=== PATIENT | female | born 1955 | race Asian ===

== ENCOUNTER 2016-10-07 08:59 | Emergency (ER) | payer OTHER ==
[2016-10-07 09:09] VITALS: TEMP 98.7; BMI 21.9
--- NOTE | 2016-10-07 09:17 | PDOC ---
[id number] No Limitations - History of Present Illness Initial Comments: 10/07/16 09:23 The patient is a 60 year old female with significant past medical history of hypertension who presents to the emergency department s/p slip and fall on ice this morning. The patient was walking outside when she slipped on ice and landed on her back. She was unable to get up on her own. Her pain is localized to her mid and upper back. The pain does not radiate. The patient denies any head trauma or LOC from the injury. She denies recent illness, fevers, or chills. <Sienna Hoffman - Last Filed: 10/07/16 09:23> <Johnson Ly - Last Filed: 11/29/16 19:53> - General Chief Complaint: Injury Stated Complaint: FALL Time Seen by Provider: 10/07/16 09:16 Past History <Sienna Hoffman - Last Filed: 10/07/16 09:23> - Past Medical History HTN: Yes - Psycho/Social/Smoking Cessation Hx Anxiety: No Suicidal Ideation: No Smoking History: Former smoker Have you smoked in the past 12 months: No Information on smoking cessation initiated: No Hx Alcohol Use: No Drug/Substance Use Hx: No Substance Use Type: None <Johnson Ly - Last Filed: 11/29/16 19:53> - Past Medical History Allergies/Adverse Reactions: Allergies Allergy/AdvReac Type Severity Reaction Status Date / Time No Known Allergies Allergy Verified 10/07/16 09:05 Home Medications: Ambulatory Orders Cimetidine [Tagamet Hb] 200 mg PO TID #30 tablet 10/07/16 Ibuprofen [Motrin -] 600 mg PO TID #30 tablet 10/07/16 Losartan Potassium 50 mg PO DAILY 10/07/16 Ondansetron [Ondansetron Odt] 8 mg PO TID #30 tab.rapdis 10/07/16 Oxycodone HCl/Acetaminophen [Percocet 5-325 mg Tablet] 1 - 2 tab PO Q6H #30 tab MDD 6 10/07/16 Review of Systems - Review of Systems Able to Perform ROS?: Yes Comments:: 10/07/16 09:23 GENERAL/CONSTITUTIONAL: No fever or chills. No weakness. HEAD, EYES, EARS, NOSE AND THROAT: No change in vision. No ear pain or discharge. No sore throat. CARDIOVASCULAR: No chest pain or shortness of breath. RESPIRATORY: No cough, wheezing, or hemoptysis. GASTROINTESTINAL: No nausea, vomiting, diarrhea or constipation. GENITOURINARY: No dysuria, frequency, or change in urination. MUSCULOSKELETAL: +Back pain. No joint or muscle swelling or pain. No neck pain. SKIN: No rash NEUROLOGIC: No headache, vertigo, loss of consciousness, or change in strength/ sensation. ENDOCRINE: No increased thirst. No abnormal weight change. HEMATOLOGIC/LYMPHATIC: No anemia, easy bleeding, or history of blood clots. ALLERGIC/IMMUNOLOGIC: No hives or skin allergy. <Sienna Hoffman - Last Filed: 10/07/16 09:23> *Physical Exam - Vital Signs Last Vital Signs Temp Pulse Resp BP Pulse Ox 98.7 F 72 20 123/87 99 10/07/16 09:06 10/07/16 09:06 10/07/16 09:06 10/07/16 09:06 10/07/16 09:06 - Physical Exam Comments: 10/07/16 09:23 GENERAL: Awake, alert, and fully oriented, in no acute distress HEAD: No signs of trauma EYES: PERRLA, EOMI, sclera anicteric, conjunctiva clear ENT: Auricles normal inspection, hearing grossly normal, nares patent, oropharynx clear without exudates. Moist mucosa NECK: Normal ROM, supple, no lymphadenopathy, JVD, or masses LUNGS: Breath sounds equal, clear to auscultation bilaterally. No wheezes, and no crackles HEART: Regular rate and rhythm, normal S1 and S2, no murmurs, rubs or gallops ABDOMEN: Soft, nontender, normoactive bowel sounds. No guarding, no rebound. No masses MUSCULOSKELETAL: +Tenderness in the mid thoracic and upper thoracic area. EXTREMITIES: Normal range of motion, no edema. No clubbing or cyanosis. No cords, erythema, or tenderness NEUROLOGICAL: Cranial nerves II through XII grossly intact. Normal speech, normal gait SKIN: Warm, Dry, normal turgor, no rashes or lesions noted. <Sienna Hoffman - Last Filed: 10/07/16 09:23> - Vital Signs Last Vital Signs Temp Pulse Resp BP Pulse Ox 98.7 F 72 20 123/87 99 10/07/16 09:06 10/07/16 09:06 10/07/16 09:06 10/07/16 09:06 10/07/16 09:06 <Johnson Ly - Last Filed: 11/29/16 19:53> *DC/Admit/Observation/Transfer - Attestations Scribe Attestion: 10/07/16 09:24 Documentation prepared by Sienna Hoffman, acting as medical transcriber for Johnson Ly DO. <Sienna Hoffman - Last Filed: 10/07/16 09:23> - Discharge Dispostion Admit: No - Attestations Physician Attestion: 10/07/16 09:17 I, Dr. Johnson Ly, attest that this document has been prepared under my direction and personally reviewed by me in its entirety. I further attest, that it accurately reflects all work, treatment, procedures and medical decision -making performed by me. <Johnson Ly - Last Filed: 11/29/16 19:53> Diagnosis at time of Disposition: Acute cervical sprain Qualifiers: Encounter type: initial encounter Qualified Code(s): S13.9XXA - Sprain of joints and ligaments of unspecified parts of neck, initial encounter Strain of thoracic spine Qualifiers: Encounter type: initial encounter Qualified Code(s): S29.019A - Strain of muscle and tendon of unspecified wall of thorax, initial encounter - Discharge Dispostion Disposition: HOME Condition at time of disposition: Good - Prescriptions Prescriptions: Ibuprofen [Motrin -] 600 mg PO TID #30 tablet Oxycodone HCl/Acetaminophen [Percocet 5-325 mg Tablet] 1 - 2 tab PO Q6H #30 tab MDD 6 Cimetidine [Tagamet Hb] 200 mg PO TID #30 tablet Ondansetron [Ondansetron Odt] 8 mg PO TID #30 tab.rapdis - Referrals Referrals: Ángela Han MD [Primary Care Provider] - - Patient Instructions Printed Discharge Instructions: DI for Closed Head Injury, DI for Cervical Muscle Strain, DI for Thoracic Back Pain Additional Instructions: Mrs Keith- Rest as much as possible. Use the medicines only if you absolutely need them. Follow up with your doctor early next week. Return to us if worse or new symptoms occur. Best- Dr. Johnson Gabrin - Post Discharge Activity Work/School Note: Back to Work
[2016-10-07] MEDS ORDERED: OXYCODONE/APAP 5/325MG COMBO TABLET PO ONE (09:21)
[2016-10-07] MEDS ORDERED: ONDANSETRON *ODT* 4 MG TABLET SL ONE (09:21)
[2016-10-07] MEDS ORDERED: ONDANSETRON *ODT* 4 MG TABLET ONE (09:30)
[2016-10-07] MEDS ORDERED: OXYCODONE/APAP 5/325MG COMBO TABLET ONE (09:30)
[2016-10-07 12:15] VITALS: BP 121/74; PULSE 79
== END 2016-10-07 12:17 | disposition home or self-care (01) ==
LOC: JER 08:59 → SUPCPDRO 08:59 → JER 12:17
DX: S13.4XXA Sprain of ligaments of cervical spine, initial encounter (principal); S29.012A Strain of muscle and tendon of back wall of thorax, initial encounter; W00.0XXA Fall on same level due to ice and snow, initial encounter; Y93.01 Activity, walking, marching and hiking; Y92.480 Sidewalk as the place of occurrence of the external cause; I10 Essential (primary) hypertension
CPT/HCPCS: 70450-TC; 72125-TC; 72128-TC; 99281-25